=== PATIENT | male | born 2000 | race Caucasian/White ===

== ENCOUNTER 2022-03-11 06:21 | Outpatient (CLI) | payer BC ==
[~2022-03-11] VITALS: Ht 184.2 cm; Wt 104.3 kg
[2022-03-11] MEDS ORDERED: PANT40TA52 PO (13:34)
== END 2022-03-11 13:39 | disposition home or self-care (01) ==
LOC: PREOP 06:21
PROVIDERS: ATTEND Surgery
DX: Z01.818 Encounter for other preprocedural examination (principal)

== ENCOUNTER 2022-03-24 12:02 | Day surgery (SDC) | payer BC ==
[~2022-03-24] VITALS: Ht 184 cm; Wt 104.3 kg
[~2022-03-24 12:02] MED LIST: PANT40TA52 PO
[2022-03-24] MEDS ORDERED: LACTATED RINGERS 1,000 ML IV STA (12:17)
[2022-03-24] MEDS ORDERED: LACTATED RINGERS 1,000 ML IV ONE (12:28)
[2022-03-24] MEDS ORDERED: HURRICAINE EXT TUBE (BENZOCAINE) XX PRN (12:30)
[2022-03-24 12:33] VITALS: BP 140/80
[2022-03-24] MEDS ORDERED: MIDAZOLAM 5 MG/5 ML (VERSED) VIAL ONE (13:54)
[2022-03-24] MEDS ORDERED: PROPOFOL INJECTION 50 ML IV ONE (13:55)
--- NOTE | 2022-03-24 14:05 | Progress Note-Pre Operative ---
Pre-Operative Progress Note Date of Available H&P: Mar 02, 2022 Date H&P Reviewed: Mar 24, 2022 Time H&P Reviewed: 14:04 History & Physical: H&P Reviewed, Patient Examed, No changes noted Pre-Operative Diagnosis: epigastric abdominal pain HERMELINDA JOHNSON DO Mar 24, 2022 14:05
--- NOTE | 2022-03-24 14:16 | Progress Note-Post Operative ---
Post-Operative Progess Note Surgeon (s)/Apprentice Cosmetologist (s) Surgeon HERMELINDA JOHNSON DO Apprentice Cosmetologist: n/a Pre-Operative Diagnosis epigastric abdominal pain Post-Operative Diagnosis Slight gastritis Procedure & Operative Findings Date of Procedure 03/24/22 Procedure Performed/Findings EGD c biopsies. 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 HERMELINDA JOHNSON DO Mar 24, 2022 14:16
[2022-03-24 14:17] VITALS: BP 102/55
--- NOTE | 2022-03-24 14:20 | Discharge Inst-Simple/Standard ---
Discharge Inst-Standard Patient Instructions/Follow Up Plan of Care/Instructions/FU: 2 weeks lobo Activity as Tolerated: Yes Discharge Diet: Regular Diet HERMELINDA JOHNSON DO Mar 24, 2022 14:20
[2022-03-24 14:22] VITALS: BP 104/58
[2022-03-24 14:25] VITALS: BP 133/74
--- NOTE | 2022-03-24 14:25 | Anesthesia-General Post-Op ---
MAC Patient Condition Mental Status/LOC: Same as Preop Cardiovascular: Satisfactory Nausea/Vomiting: Absent Respiratory: Satisfactory Pain: Controlled Complications: Absent Post Op Complications Complications None Follow Up Care/Instructions Patient Instructions None needed. Anesthesiology Discharge Order Discharge Order Patient is doing well, no complaints, stable vital signs, no apparent adverse anesthesia problems. No complications reported per nursing. LESLIE PINEDA CRNA Mar 24, 2022 14:25
[2022-03-24 14:50] VITALS: BP 133/74
--- NOTE | 2022-03-24 21:40 | OPERATIVE REPORT ---
DATE OF SERVICE: 03/24/2022 PREOPERATIVE DIAGNOSIS: Epigastric abdominal pain. POSTOPERATIVE DIAGNOSIS: Slight gastritis. PROCEDURE: EGD with biopsies. SURGEON: Hermelinda Noel DO ANESTHESIA: Per FRONTEND ENGINEER. ESTIMATED BLOOD LOSS: None. COMPLICATIONS: None. INDICATIONS: The patient is a 21-year-old male with epigastric abdominal pain. He understands risks and benefits of procedure and wished to proceed. Consent was signed in the chart. DESCRIPTION OF PROCEDURE: The patient was taken to the endoscopy suite, placed in left lateral recumbent position. Timeout was performed. Scope was inserted in mouth, down the esophagus, stomach and into the duodenum without difficulty. No polyps, masses or ulcerations within the duodenum. Scope was slowly retracted back to stomach where it was further insufflated. Slight changes of gastritis present, but minimal. Biopsy of the antrum was obtained. Scope was retroflexed noting no other pathology. Scope was returned to its normal position, slowly withdrawn to distal esophagus. Biopsy of GE junction was obtained. No polyps, masses or ulcerations. Scope was slowly retracted back until completely removed. The patient tolerated procedure well without any complications, taken to recovery room in stable condition. RECOMMENDATIONS: The patient will continue on Protonix. Await biopsy results. We will consider working up gallbladder for further evaluation. The patient will follow up in 2 weeks. CC: Eder ORNELAS -- requested, unable to deliver. Job ID: [id number] DocumentID: [id number] Dictated Date: 03/24/2022 14:22:08 Executive Director Date: 03/24/2022 21:40:01 Dictated By: HERMELINDA NOEL DO
== END 2022-03-24 14:50 | disposition home or self-care (01) ==
LOC: ENDO 12:02
PROVIDERS: ATTEND Surgery
DX: K29.50 Unspecified chronic gastritis without bleeding (principal); K21.9 Gastro-esophageal reflux disease without esophagitis; E66.9 Obesity, unspecified; Z79.899 Other long term (current) drug therapy; Z68.30 Body mass index [BMI] 30.0-30.9, adult
CPT/HCPCS: 88305

== ENCOUNTER → 2022-03-31 | Outpatient (CLI) | payer BC ==
--- NOTE | 2022-03-31 08:37 | Diagnostic Imaging Report ---
PROCEDURE: US Gallbladder. INDICATION: EPIGASTRIC PAIN TECHNIQUE: Multiple grayscale sonographic images were obtained of the right upper quadrant of the abdomen. CORRELATION STUDY: None FINDINGS: LIVER: Liver enlarged at 21 cm. No focal lesion. The main portal vein is patent and with normal direction of flow. GALLBLADDER: The gallbladder demonstrates no definitive shadowing gallstones, abnormal gallbladder wall thickening or pericholecystic fluid. COMMON BILE DUCT: Not visualized, obscured. AORTA/IVC: Abdominal aorta obscured. Limited visualized portions of the inferior vena cava, unremarkable. PANCREAS: Obscured by overlying bowel gas. RIGHT KIDNEY: 10.2 x 5.2 x 5.2 cm. No hydronephrosis. OTHER: No significant right upper quadrant ascites. IMPRESSION: 1. Hepatomegaly. 2. Negative for gallstones. Biliary tree is not able to be identified. No overt bile duct dilatation. Dictated by: Dictated on workstation # [id number]
== END ==
LOC: RAD FS 07:53
PROVIDERS: ATTEND Surgery
DX: R16.0 Hepatomegaly, not elsewhere classified (principal); R10.13 Epigastric pain
CPT/HCPCS: 76705

== ENCOUNTER → 2022-04-06 | Outpatient (CLI) | payer BC ==
[~2022-04-06] MED LIST changes: +CATHETER FLUSH 10 ML SYR IVP PRN
--- NOTE | 2022-04-06 14:47 | Diagnostic Imaging Report ---
INDICATION: EPIGASTRIC PAIN. FINDINGS: The patient was administered 5.34 mCi of Tc 99m Choletec and sequential imaging was performed over the right upper abdomen. There is progressive, homogeneous accumulation of radiotracer within the liver parenchyma. There is filling of the bile ducts and subsequent filling of the gallbladder. There is progressive clearance of activity from the liver parenchyma and accumulation of radiotracer within loops of small bowel. The patient was then administered a fatty meal, utilizing 8 ounces of Ensure. The gallbladder ejection fraction was calculated to be approximately 48%. (Normal values post fatty meal stimulation are 33% or greater.) IMPRESSION: 1. Hepatobiliary scan demonstrates a patent biliary tree. 2. Normal gallbladder ejection fraction of approximately 48%. Dictated by: Dictated on workstation # [id number]
== END ==
LOC: CARD 11:49
PROVIDERS: ATTEND Surgery
DX: R10.13 Epigastric pain (principal)
CPT/HCPCS: 78227; A9537